=== PATIENT | female | born 1975 | race Two or more races ===

== ENCOUNTER 2017-05-17 09:00 | Outpatient (RCR) | payer OTHER | END 2017-05-18 | disposition home or self-care (01) | LOC: PTY 09:00 | DX: M54.5 Low back pain (principal); M62.838 Other muscle spasm ==

== ENCOUNTER 2017-05-24 09:56 | Outpatient (RCR) | payer OTHER | END 2017-06-18 | disposition home or self-care (01) | LOC: PTY 09:56 | DX: M54.5 Low back pain (principal); M62.838 Other muscle spasm ==